=== PATIENT | female | born 1935 | race Caucasian/White ===

== ENCOUNTER 2017-02-10 20:49 | Emergency (ER) | payer OTHER ==
[2017-02-10 21:00] VITALS: BMI 17.6
[2017-02-10] MEDS ORDERED: TORADOL 30 MG VIAL IM PRN (22:10)
--- NOTE | 2017-02-10 22:15 | DR.GENAD ---
HPI - PCP Primary Care Physician: gilson - Complaint/Symptoms Chief Complaint Doctors Comments: Patient states she was going out of her back door and lost her balance and fell on her right hand and wrist about an hour ago. states it hurts to move her right wrist worst with the pain being 10 of 10. she denies head trauma or LOC. States she has been having hip pain for a while before the fall and the only thing she hurt today is her right wrist and arm. she denies neck pain on numbness or tingling in hands or legs. States she is a patient of Dr. Arango and she does not like strong pain medicines. Patient states she do not want her hip x-rayed today because she walked into the emergency room and her hand is what is hurting her. She will have her hip x -rayed if it gets worst. Chief Complaint:: fall injury to right wrist and right hip Self Treatment fo Chief Complaint: ice to right wrist. - Nurses notes reviewed Nurses Notes Review: Yes - Source History Provided: Patient - Mode of Arrival Mode of Arrival: Ambulatory - Timing Onset of Chief Complaint: 02/10/17 Came on: Suddenly - Duration Duration: Constant How lon Duration: Hours - Location Location: right wrist and forearm - Severity Severity: Severe - Modifying Factors Worsens:: movement Improves:: nothing PMH - PMH Past Medical History: Yes Past Medical History: Hypertension Past Medical History Comment: pulmonary fibrosis, sleep apnea Past Surgical History: Yes Surgical History: Abdominal Surgery Past Surgical History Comment: hernia repair x 2, back surgery - Family History History of Family Medical Conditions: Yes Family Medical History: Diabetes Mellitus, Coronary Artery Disease, Hypertension - Social History Does patient currently use any type of tobacco product: No Have you used tobacco products in the last 12 months: No Type of Tobacco Use: None Does any household member use tobacco: No Alcohol Use: None Do you use any recreational Drugs:: No Lives With: Alone Lives Where: Home - infectious screening In the last 2 months have you had wt loss of >10#?: NO Have you had fever, night sweats or hemotysis?: No Have you traveled outside the country in the last 6 months?: No Isolation: Standard ROS - Review of Systems Constitutional: No Symptoms Reported. negative: See HPI, Chills, Diaphoresis, Fever, Malaise, Weakness, Irritable, Fatigue, Loss of Appetite, Other Eyes: No Symptoms Reported ENTM: No Symptoms Reported. negative: See HPI, Ear Pain, Ear Discharge, Pulling on Ears, Hearing Loss, Nose Pain, Nose Discharge, Epistaxis, Nose Congestion, Mouth Pain, Mouth Swelling, Loose Teeth, Drooling, Throat Pain, Throat Swelling, Ear Foreign Body Respiratoy: No Symptoms Reported. negative: See HPI, Productive Cough, Non- Productive Cough, Moist Cough, Dry Cough, Hacking Cough, Barking Cough, Brassy Cough, Orthopnea, Short of Breath, Stridor, Wheezing, Hemoptysis, Other Cardiovascular: No Symptoms Reported. negative: See HPI, Chest Pain, Edema, Palpitations, Syncope, Cyanosis, Skin Mottling, Other Gastrointestinal/Abdominal: No Symptoms Reported Genitourinary: No Symptoms Reported. negative: See HPI, Discharge, Dysuria, Frequency, Hematuria, Pain, Bleeding, Other Neurological: No Symptoms Reported. negative: See HPI, Anxiety, Depressed, Emotional Problems, Headache, Numbness, Paresthesia, Pre-existing Deficit, Seizure, Tingling, Tremors, Weakness, Dizziness, Problems Walking, Speech Problem, Other Musculoskeletal: No Symptoms Reported, Right, Forearm, Wrist (tender with swelling and pain on palpation) Integumentary: No Symptoms Reported, Bruises (right hand 5th finger) Hematologic/Lymphatic: No Symptoms Reported. negative: See HPI, Anemia, Blood Clots, Easy Bleeding, Easy Bruising, Swollen Glands, Lymphadenopathy, Other Endocrine: No Symptoms Reported. negative: See HPI, Excessive Sweating, Flushing, Intolerance to Cold, Intolerance to Heat, Increased Hunger, Increased Thirst, Increased Urine, Unexplained Weight Gain, Unexplained Weight Loss, Failure to Thrive, Decreased Appetite, Other Psychiatric: No Symptoms Reported. negative: See HPI, Anxiety, Depression, Hallucinations, Excessive crying, Suicidal, Other PE - Vital Signs Vitals: Temperature 97.7 F Pulse Rate 69 Respiratory Rate 18 Blood Pressure 159/69 O2 Sat by Pulse Oximetry 99 - General Limitations: No Limitations General Appearance: Alert, In Distress (moderate) - Head Head Exam: Normal Inspection, Atraumatic, Normocephalic - Eyes Eye exam: Normal Appearance, PERRL, EOMI. negative: Scleral Icterus, Conjunctival Injection, Nystagmus, Miosis, Mydrasis, Periorbital Swelling, Periorbital Tenderness, Other - ENT ENT Exam: Normal Exam, Normal Oropharynx, Normal External Ear Exam, Mucous Membranes Moist, TM's Normal Bilaterally External Ear Exam: Normal External Inspection TM/Canal Exam: Bilateral Normal Nose Exam: Normal Nose Exam Mouth Exam: Normal Inspection. negative: Drooling, Trismus, Lip Swelling, Tongue Elevation, Tongue Swelling, Laceration, Other Throat Exam: Normal Inspection. negative: Tonsillar Erythema, Tonsillomegaly, Tonsillar Exudate, R Peritonsillar Mass, L Peritonsillar Mass, Muffled Voice, Other - Neck Neck Exam: Normal Inspection, Full ROM, Trachea Midline. negative: Tenderness, Meningismus, Lymphadenopathy, Thyromegaly, Other - Chest Chest Inspection: Normal Inspection, Symmetric Chest Wall Rise. negative: Tenderness, Rash, Abscess, Other - Respiratory Respiratory Exam: Normal Lung Sounds Bilat Respiratory Exam: Bilateral Clear to Auscultation - Cardiovascular Cardiovascular Exam: Regular Rate, Normal Rhythm, Normal Heart Sounds. negative : Bradycardia, Tachycardia, Irregular Rhythm, Systolic Murmur, Diastolic Murmur , Rubs, Gallop, Clicks, JVD, +S1, +S2, +S3, +S4, Other - Abdominal Exam Abdominal Exam: Normal Inspection, Normal Bowel Sounds, Soft Abdominal Tenderness: negative: RUQ, RLQ, LUQ, LLQ, Epigastrium, Suprapubic, Diffuse, Mild, Moderate, Severe, Other - Extremities Extremities Exam: Normal Inspection, Full ROM, Tenderness (right wrist tender with moderate swelling), Normal Capillary Refill, Joint Swelling. negative: Edema, Calf Tenderness, Other - Back Back Exam: Normal Inspection, Full ROM. negative: Tenderness, (R) CVA Tenderness, (L) CVA Tenderness, Muscle Spasm, Paraspinal Tenderness, Vertebral Tenderness, Rashes, (R) Sciatic Notch Tenderness, (L) Sciatic Notch Tendern, (R ) Straight Leg Raise, (L) Straight Leg Raise, Other - Neurologic Neurological Exam: Alert, Oriented X3, CN II-XII Intact, Normal Gait, Reflexes Normal - Psychiatric Psychiatric Exam: Normal Affect, Normal Mood. negative: Depressed, Agitated, Anxious, Flat Affect, Manic, Homicidal Ideation, Suicidal Ideation, Other - Skin Skin Exam: Warm, Dry, Intact, Normal Color. negative: Rash, Cyanosis, Diaphoresis, Erythema, Pallor, Mottled, Other ROR - Labs Reviewed Laboratory Results Reviewed?: Yes (all x-ray results reviewed and discussed with patient.) - XRAY XRAY Interpreted by: Radiologist (right forearm: Impacted distal radial fracture with ulnar styloid fracture), Both (right hand: Impacted distal radial fracture and ulna styloid fracture with edema) - Diagnosis Discharge Problem: impacted distal radial fracture, diffuse osteopenia Fracture of right ulnar styloid Qualifiers: Encounter type: initial encounter Fracture type: closed Contusion of wrist, right Qualifiers: Encounter type: initial encounter Qualified Code(s): S60.211A - Contusion of right wrist, initial encounter - Discharge Plan Disposition: HOME, SELF-CARE Condition: Stable Prescriptions: Hydrocodone-Acet 5 mg/325 mg [[place] 5/325 mg Tab] 1 tab PO Q6H PRN #21 tab PRN Reason: Pain - Follow ups/Referrals Follow ups/Referrals: GLADYS FOWLER [Primary Care Provider] - 3 days MARILUZ SANTOS [STAFF PHYSICIAN] - 3 days - Instructions Instructions: Radial Fracture, Ulnar Fracture, Fall Prevention in the Home, [id number]
--- NOTE | 2017-02-10 22:42 | RAD ---
FOREARM RADIOGRAPHS: CLINICAL HISTORY: 81-year-old female status post fall with pain and edema at the wrist. COMPARISON: None. FINDINGS: Two views of the right forearm demonstrate nondisplaced ulnar styloid fracture with fractu re of the distal radius. Mild soft tissue edema about the wrist. Mild diffuse osteopenia. Elbow join t is congruent. IMPRESSION: Impacted distal radial fracture with ulnar styloid fracture and surrounding edema. Reported By:
--- NOTE | 2017-02-10 22:43 | RAD ---
HAND RADIOGRAPHS CLINICAL HISTORY: 81-year-old female status post fall with right wrist pain and edema. COMPARISON: None. FINDINGS: Three views of the right hand demonstrate impacted distal radial fracture and ulnar styloi d fracture with surrounding edema. There is diffuse osteopenia. 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 Carpals are well aligned with remaining imaged osseous structures and joint sp aces intact and congruent. IMPRESSION: Impacted distal radial fracture and ulnar styloid fracture with surrounding edema. Reported By:
[2017-02-10] MEDS ORDERED: TORADOL 30 MG VIAL ONE (22:56)
[2017-02-10 23:45] VITALS: BP 148/69
== END 2017-02-10 23:35 | disposition home or self-care (01) ==
LOC: ER 21:08
PROC: 2W38X1Z Immobilization of Right Upper Extremity using Splint (ICD-10-PCS; principal; 2017-02-10)
DX: S52.611A Displaced fracture of right ulna styloid process, initial encounter for closed fracture (principal); S52.539A Colles' fracture of unspecified radius, initial encounter for closed fracture; S60.211A Contusion of right wrist, initial encounter; M85.80 Other specified disorders of bone density and structure, unspecified site; W19.XXXA Unspecified fall, initial encounter; Y92.9 Unspecified place or not applicable
CPT/HCPCS: 29125; 73090; 73130; 96372; 99282; 99283; J1885

== ENCOUNTER → 2017-10-02 | Outpatient (CLI) | payer OTHER ==
--- NOTE | 2017-10-02 14:48 | CT ---
History: Lower pelvic pain Study: CT abdomen pelvis without contrast Findings: [address] imaging is performed from above the diaphragms to the pubic symphysis witho ut oral or intravenous contrast. Coronal and sagittal reformatted images are submitted as well. Limit ed tree-in-bud densities within both lower lobes is present and also seen on the previous study of . Is actually improved on the left. The liver and spleen are normal in size and uniform in de nsity. The gallbladder, pancreas, adrenal glands and kidneys appear unremarkable. Imaging through the pelvis again demonstrates a 4 x 3.5 cm low-density lesion in the left lower lateral pelvis represent ing a left ovarian cyst unchanged from the previous study. Scattered endometrial calcification is aga in identified. There is rather severe osteopenia of the bony structures. Rather severe compression of the body of L1 is now noted with stable mild compression of the body of L2. Previous L3 kyphoplasty has been performed. Moderate compression of L4 and compression of the superior endplate of L5 is agai n noted. Impression: Persistent left ovarian cyst. Multiple lumbar compression fractures with new fracture of L1 since the CT examination of 08/09/2015. Reported By:
== END ==
LOC: RAD 13:26
PROVIDERS: ATTEND Family Medicine
DX: R10.12 Left upper quadrant pain (principal)
CPT/HCPCS: 74176